=== PATIENT | male | born 1950 | race Caucasian/White ===

== ENCOUNTER → 2020-12-27 | Outpatient (CLI) | payer MEDICARE, BC ==
[~2020-12-27] MED LIST: NO HOME MEDICATIONS
== END ==
LOC: COL.RAD 11:12
DX: M47.816 Spondylosis without myelopathy or radiculopathy, lumbar region (principal); M47.817 Spondylosis without myelopathy or radiculopathy, lumbosacral region; M48.061 Spinal stenosis, lumbar region without neurogenic claudication

== ENCOUNTER → 2021-01-23 | Outpatient (CLI) | payer BC, MEDICARE | LOC: MHCPAIN 14:51 | DX: M47.817 Spondylosis without myelopathy or radiculopathy, lumbosacral region (principal); M54.50 Low back pain, unspecified; M53.3 Sacrococcygeal disorders, not elsewhere classified | CPT/HCPCS: G0463 ==

== ENCOUNTER → 2021-02-02 | Outpatient (CLI) | payer BC, MEDICARE | LOC: MHCPAIN 07:37 | DX: M47.817 Spondylosis without myelopathy or radiculopathy, lumbosacral region (principal); M54.50 Low back pain, unspecified; M53.3 Sacrococcygeal disorders, not elsewhere classified | CPT/HCPCS: J0461 ==

== ENCOUNTER → 2021-02-14 | Outpatient (CLI) | payer MEDICARE, BC | LOC: MHCPAIN 11:16 | DX: M47.817 Spondylosis without myelopathy or radiculopathy, lumbosacral region (principal); M54.50 Low back pain, unspecified; M53.3 Sacrococcygeal disorders, not elsewhere classified | CPT/HCPCS: G0463 ==

== ENCOUNTER → 2021-03-29 | Outpatient (CLI) | payer MEDICARE, BC | LOC: MHCPAIN 10:52 | DX: M47.817 Spondylosis without myelopathy or radiculopathy, lumbosacral region (principal); M54.50 Low back pain, unspecified; M53.3 Sacrococcygeal disorders, not elsewhere classified; E66.01 Morbid (severe) obesity due to excess calories; Z68.43 Body mass index [BMI] 50.0-59.9, adult | CPT/HCPCS: G0463 ==

== ENCOUNTER 2021-06-01 04:31 | Inpatient (IN) | payer MEDICARE, BC ==
[~2021-06-01] VITALS: Ht 188 cm; Wt 180.7 kg
[2021-06-01 05:04] LABS: BASO # 0.1 K/mm3 (0.0-0.2); BASO % 0.5 % (0.0-2.0); EOS # 0.2 K/mm3 (0.0-0.7); EOS % 2.2 % (0.0-4.0); GRAN # 9.3 K/mm3 (1.4-6.5); GRAN % 83.3 % (42.2-75.2); HEMATOCRIT 43.1 % (42.0-52.0); HEMOGLOBIN 14.7 g/dl (13.5-18.0); LYMPH # 0.8 K/mm3 (1.2-3.4); LYMPH % 7.4 % (20.0-51.0); MEAN CELL VOLUME 88 fl (80.0-100.0); MEAN CORPUSCULAR HEMOGLOBIN 30 pg (27-31); MEAN CORPUSCULAR HGB CONC 34 g/dl (33.0-37.0); MONO # 0.7 K/mm3 (0.1-0.6); MONO % 6.1 % (1.7-9.3); PLATELET COUNT 238 K/mm3 (130-400); RED BLOOD COUNT 4.92 M/mm3 (4.20-5.60); REDCELL DISTRIBUTION WIDTH-CV 14.7 % (11.5-14.5)
[2021-06-01 05:22] LABS: ALANINE AMINOTRANSFERASE 13 U/L (0-55); ALBUMIN 2.6 gm/dL (3.4-4.8); ALKALINE PHOSPHATASE 111 U/L (40-150); ANION GAP 14 mmol/L (7-16); AST,SGOT 11 U/L (5-34); BILIRUBIN,TOTAL 0.9 mg/dL (0.2-1.2); BLOOD UREA NITROGEN 17 mg/dL (8-26); CALCIUM 9.5 mg/dL (8.4-10.2); CARBON DIOXIDE 25 mmol/L (23-31); CHLORIDE 98 mmol/L (98-107); CREATININE, serum 1.26 mg/dL (0.72-1.25); GLUCOSE 196 mg/dL (70-99); POTASSIUM 4.3 mmol/L (3.5-4.5); SODIUM 137 mmol/L (136-145); TOTAL PROTEIN 6.8 gm/dL (6.2-8.1)
[2021-06-01 05:38] LABS: TROPONIN-I < 0.010 ng/mL (0.00-0.033)
[2021-06-01 09:53] VITALS: BP 141/90; PULSE 113; TEMP 99.3
[2021-06-01 09:58] LABS: ARTERIAL BLD GAS O2 SATURATION 95.3 % (92-100); ARTERIAL BLD GAS TCO2 CT 23.7; ARTERIAL BLOOD GAS BASE EXCESS -0.6 (-2-2); ARTERIAL BLOOD GAS HCO3 22.7 meq/L (22-26); ARTERIAL BLOOD GAS PCO2 33.8 mmHg (35-45); ARTERIAL BLOOD GAS pH 7.45 (7.35-7.45)
[2021-06-01 13:06] VITALS: BP 117/50; PULSE 114; TEMP 99.1
--- NOTE | 2021-06-01 13:20 | NUR ---
Patient arrived to the floor from ED. Patient is confused and moves around a lot, constantly scooting down in bed. A bariatric bed was ordered for the patient, currenrtly awaiting its arrival. Patient consistently requesting a new bed, and multiple staff members have explained that one has been ordered. Sister called and was given an update, plans to stop by and bring his medication list as well as his medical power of criminal attorney paperwork.
--- NOTE | 2021-06-01 15:29 | NUR ---
Patient is currently confused and verbally yelling out. SW met with the patient's sister Sasha outside of the patient's room. Sasha reports that she and the patient live together and that up until 2 weeks ago the patient was "normal". Sasha states that for the past two weeks she has had to help the patient will all of his ADL's and that he utilizes a walker to assist with ambulation. Patient has no oxygen needs at home. PCP is Dr. Morales and he utilizes [facility] for medications. Sasha provides patient's RN with a copy of his DPOA-HC paperwork. Copy placed in the patient's chart. Sasha appears teary stating that she "can't do it anymore. He has to go to a rehab". Sasha states that she is working two jobs and cannot physically, mentally or emotionally care for the patient any longer. Discussed the different SNF facilities ([facility], [facility], [place], [facility] and [facility]) that would be able to provide the patient with rehab services. Sasha verbalizes that she doesn't care where he goes "as long as it is clean". Informed Sasha that we can send off referrals to all 4 facilities and see who would have a bed available. Sasha verbalizes her agreement with this plan. States that she would like the patient to come back home only after he goes to rehab for therapy and is able to "care for himself and be normal". States that if he cannot do that he will either have to go to a facility or she will have to "move out of the house". Discharge plan: SNF
[2021-06-01 15:35] LABS: COLLECTION METHOD CLEAN CATCH
[2021-06-01] MEDS ORDERED: NEURONTIN300 MG/CAP PO (15:42)
[2021-06-01] MEDS ORDERED: PRIL40 PO (15:43)
[2021-06-01] MEDS ORDERED: GLUCOPHAGE500 MG/TAB PO (15:43)
[2021-06-01] MEDS ORDERED: LIPITOR 40MG TA40 MG PO (15:45)
[2021-06-01] MEDS ORDERED: HYDRODIURIL50 MG PO (15:45)
[2021-06-01] MEDS ORDERED: ZOLOFT 100MG100 MG PO (15:46)
[2021-06-01 15:47] LABS: MUCOUS Present (NOT PRESENT); PH 5 (5-8); URINE APPEARANCE Hazy (CLEAR/HAZY); URINE BACTERIA Rare /hpf (NONE SEEN); URINE BILIRUBIN Negative (NEGATIVE); URINE BLOOD Negative (NEGATIVE); URINE COLOR Yellow (YELLOW); URINE GLUCOSE Negative (NEGATIVE); URINE KETONE Negative (NEGATIVE); URINE LEUKOCYTE ESTERASE 2+ (NEGATIVE); URINE NITRATE Negative (NEGATIVE); URINE PROTEIN(semi-quant) Negative (NEGATIVE); URINE UROBILINOGEN Negative (NEGATIVE)
[2021-06-01] MEDS ORDERED: NAPROSYN500 MG PO (15:47)
[2021-06-01] MEDS ORDERED: KLOR-CON 1010 MEQ PO (15:47)
[2021-06-01] MEDS ORDERED: ULTRAM 50MG TAB50 MG PO (15:50)
[2021-06-01] MEDS ORDERED: SYNTHROID0.05 MG/TA PO (15:50)
[2021-06-01] MEDS ORDERED: AMARYL 2MG T2 MG/TAB PO (15:52)
[2021-06-01 16:21] VITALS: BP 106/65; PULSE 113; TEMP 99.2
--- NOTE | 2021-06-01 17:49 | NUR ---
Patient has calmed down a bit, but still remains disgruntled. Patient's sister brought all of the home medications in and med rec was completed. Patient told sister to, "Get the f*ck out of my room. You put me in here becasue you only care about yourself". RN and sister left the room. Sister became teary-eyed and expressed that he has been this way for the last 2wks, and that she can no longer handle it. Patient is morbidly obese and needs a bariatric bed. This has been ordered and should be here tomorrow according to the [facility] providers. Patient is very unhappy with his current situation here in the hospital and is stating that he will be leaving tomorrow.
[2021-06-01 21:05] VITALS: BP 143/50; PULSE 99; TEMP 98.9
--- NOTE | 2021-06-01 22:00 | NUR ---
Patient is reting in bed, alert and oriented x 3, Tachycardic. Telemetry in place. Left hand IV leaking, removed. Getting 2L O2 NC. Assisted to use the bed comode and urinal. Assessment completed, medications provided. Asked for meds to sleep and something for itchiness in his skin. Called Ida and added PRN meds. No other needs at this time. Call light within reach.
[2021-06-02] VITALS (9 sets, daily range): BP systolic 103–141; BP diastolic 53–89; PULSE 84–117; TEMP 97.6–99
[2021-06-02 06:10] LABS: BASO % 0.4 % (0.0-2.0); EOS # 0.2 K/mm3 (0.0-0.7); EOS % 1.6 % (0.0-4.0); GRAN # 7.4 K/mm3 (1.4-6.5); GRAN % 76.5 % (42.2-75.2); HEMATOCRIT 41.4 % (42.0-52.0); HEMOGLOBIN 14.3 g/dl (13.5-18.0); LYMPH # 1.3 K/mm3 (1.2-3.4); LYMPH % 13.5 % (20.0-51.0); MEAN CELL VOLUME 87 fl (80.0-100.0); MEAN CORPUSCULAR HEMOGLOBIN 30 pg (27-31); MEAN CORPUSCULAR HGB CONC 35 g/dl (33.0-37.0); MEAN PLATELET VOLUME 10.5 fl (7.4-10.4); MONO # 0.7 K/mm3 (0.1-0.6); MONO % 7.3 % (1.7-9.3); PLATELET COUNT 257 K/mm3 (130-400); RED BLOOD COUNT 4.75 M/mm3 (4.20-5.60); REDCELL DISTRIBUTION WIDTH-CV 14.6 % (11.5-14.5)
--- NOTE | 2021-06-02 06:20 | NUR ---
Patient has been disoriented along the night. He asked for his clothes to go home, expecting seeing someone outside waiting for him. He has been Tachycardic 110's, Report will be given to day shift RN.
[2021-06-02 06:26] LABS: ALBUMIN 2.6 gm/dL (3.4-4.8); C-REACTIVE PROTEIN 19.9 mg/dL (0.00-0.50); CALCIUM 9.3 mg/dL (8.4-10.2); CREATININE, serum 1.28 mg/dL (0.72-1.25); MAGNESIUM 1.5 mg/dL (1.6-2.6); PHOSPHOROUS 4.6 mg/dL (2.3-4.7); POTASSIUM 3.2 mmol/L (3.5-4.5)
--- NOTE | 2021-06-02 07:15 | NUR ---
DOING ROUNDING ON PTS, PT ATTEMPTING TO GET OUT OF BED, POOR MOBILITY, PT APPEARED DISORIENTED, PULLING OFF OXYGEN AND TELE, WAS ABLE TO CONVINCE PT TO GET BACK TO BED, PT ANSWERED ORIENTATION QUESTIONS APPROPRIATELY AND THEN STATED "IM NOT CRAZY, I JUST HAVE A SISTER WHO HATES ME, LIKE YOU GUYS PROBABLY DO". EDUCATED PT TO CALL WHEN NEEDING TO AMBULATE DUE TO RECENT FALLS AT HOME, PT STATED "YEAH I JUST DONT WANT TO BUG YOU GUYS MORE THAN I ALREADY DO". BED ALARM SET, OXYGEN PUT BACK ON PT, TELE PLACED BACK ON PT, NO OTHER NEEDS AT THIS TIME.
[2021-06-02 08:41] LABS: ERYTHROCYTE SEDIMENTATION RATE 82 mm/hr (0-30)
--- NOTE | 2021-06-02 10:00 | NUR ---
PT GETTING AGITATED, YELLING HE WOULD NOT GO TO A FACILITY, PT AOX4 BUT CONVERSATION DOES NOT MAKE SENSE, POOR MEMORY AND RECALL, FAMILY FRIEND AT BEDSIDE EDUCATING PT ON NEED FOR SNF FACILITY. PT SISTER, DPOA CALLED AND STATED "I CAN'T KEEP CARING FOR HIM, THEODORE HAD TO CALL EMS 10 TIMES IN THE MIDDLE OF THE NIGHT TO GET HIM OFF THE FLOOR... IF HE COMES HOME I'M LEAVING... HE'S DRAINING MY SOUL..." PASSED ALONG TO PHYSICIAN, NO NEW ORDERS. VISUAL C DEVELOPER NOTIFIED AND WORKING ON CASE.
--- NOTE | 2021-06-02 13:09 | NUR ---
First visit from the junior account manager. No needs right now.
--- NOTE | 2021-06-02 15:51 | NUR ---
Lodging House Keeper followed up with patient about discharge plan. Patient verbalized frustration and stated he cannot stay in this hosptial any longer and will call a cab if he needs to. ARACELIS discussed rehab with patient and he stated that's fine but he's leaving the hospital today. Patient's niece, Billie (ph#[phone]) arrives at bedside and states she will talk with patient. ARACELIS followed up later that morning with both patient and Billie. Billie states patient's sister, Sasha who he lives with does not want him to come home and believes he needs rehab. Patient states his sister is a "bitch". Billie says the plan will be rehab and patient verbalized that he is agreeable, but not happy about it. Billie advised she works at [facility] [employer] and patient would like additional referral sent there. ARACELIS faxed referrals to [facility], [facility], [place], [facility], and [facility]. [facility] declined referral. [facility] advised they want more updates before they will accept/decline. Discharge Plan: SNF
--- NOTE | 2021-06-02 16:32 | NUR ---
COURTNEY RN ANSWERED CALL FROM NURSES STATION FROM [facility] STATING PT WAS CALLING SAYING WE WERE KEEPING HIM AGAINST HIS WILL. ENTERED PT ROOM TO TALK TO HIM HE STATED "I TOLD YOU MULTIPLE TIMES I WAS GOING TO CALL THE POLICE... IM GOING HOME, YOU WONT GIVE ME ANY PHONE NUMBERS". PT HAS NOT MADE ANY REQUESTS TO CALL OTHERS DURING THIS SHIFT, HAS NOT THREATENED TO CALL THE POLICE, PT AGREABLE TO SNF FACILITY WITH FAMILY MEMBER IN ROOM. DR. JEONG NOTIFIED TO DE ESCALATE PT, IN ROOM WITH PT. PT WANTING TO PRIVATE PAY EMS HOME, JUDY BALBUENA ARRIVED DURING THIS CONVERSATION WITH PT.
--- NOTE | 2021-06-02 17:21 | NUR ---
PT BECOMING VIOLENT AND GRABBING AT STAFF AND SISTER/DPOA IN THE ROOM. HALDOL GIVEN PER ORDER ALONG WITH SEROQUEL. ASSISTED PT BACK TO BED. PT STILL INSISTING ON LEAVING FACILITY, DR. JEONG STATED HE IS NOT ABLE TO MAKE HIS OWN DECISIONS AT THIS TIME, DPOA IN ROOM ATTEMPTING TO CALM PT
[2021-06-02 18:16] LABS: ARTERIAL BLD GAS O2 SATURATION 92.8 % (92-100); ARTERIAL BLD GAS TCO2 CT 22.7; ARTERIAL BLOOD GAS BASE EXCESS 0.8 (-2-2); ARTERIAL BLOOD GAS HCO3 21.9 meq/L (22-26); ARTERIAL BLOOD GAS PCO2 26.7 mmHg (35-45); ARTERIAL BLOOD GAS PO2 66.9 mmHg (80-100); ARTERIAL BLOOD GAS pH 7.53 (7.35-7.45)
--- NOTE | 2021-06-02 18:16 | NUR ---
PT CONTINUING WITH AGGRESSIVE BEHAVIOR, ATIVAN ORDERED IV, ATTEMTPED TO GIVE IV ATIVAN, PT HAD RIPPED OUT IV, DR. JEONG NOIFIED AND VERBAL ORDER PLACED FOR IM ATIVAN AND CONTINUOUS PULSE OX. PULSE OX PLACED AND IM ATIVAN GIVEN PER ORDER.
--- NOTE | 2021-06-02 19:00 | NUR ---
EMILY PT SISTER STATING "HE'S HALLUCINATING THINGS ON THE CEILING SAYING EMILY HELP ME, EMILY HELP ME AND HE DOES THIS ALL NIGHT AT HOME WITH ME. I DON'T KNOW HOW HE GOT SO BAD, DOES HE NEED A PSYCH FACILITY INSTEAD OF A SNF? ", EMILY STATING SHE CANNOT CARE FOR HIM AT HOME, PT STILL TRYING TO GET OUT OF BED DESPITE MANY MEDS GIVEN, SISTER EMILY LEAVING AT THIS TIME. BED ALARM IN PLACE, PT SETTING OFF BED ALARM TRYING TO GET UP.
[2021-06-03] VITALS (7 sets, daily range): BP systolic 95–150; BP diastolic 61–90; PULSE 102–110; TEMP 97.9–98.8
[2021-06-03 02:28] LABS: IMMUNOGLOBULIN A 247 mg/dL (101-645); IMMUNOGLOBULIN G 731 mg/dL (540-1822)
--- NOTE | 2021-06-03 02:29 | NUR ---
PATIENT DOING WELL TONIGHT. ALERT BUT NOT ORIENTED. SPEECH IS VERY CONFUSED. AT START OF SHIFT PATIENT CONTINUOUSLY TRIED TO GO HOME AND KEPT ROLLING IN BED SETTING OFF THE ALARM. HS MEDICATIONS WERE GIVEN. NO PRN MEDS. AND PATIENT HAS BEEN RESTING IN BED SINCE WITHOUT ISSUE. AMBULATED WITH X1 ASSIST TO BEDSIDE COMMODE. TELE SHOWING A FLUTTER. BLOOD SUGAR 141 AT MIDNIGHT. NO FURTHER NEEDS. DENIES PAIN.
[2021-06-03 05:57] LABS: BASO % 0.4 % (0.0-2.0); EOS # 0.2 K/mm3 (0.0-0.7); EOS % 1.9 % (0.0-4.0); GRAN # 6.9 K/mm3 (1.4-6.5); HEMATOCRIT 43.8 % (42.0-52.0); HEMOGLOBIN 14.4 g/dl (13.5-18.0); LYMPH # 1.1 K/mm3 (1.2-3.4); LYMPH % 12.3 % (20.0-51.0); MEAN CELL VOLUME 91 fl (80.0-100.0); MEAN CORPUSCULAR HEMOGLOBIN 30 pg (27-31); MEAN CORPUSCULAR HGB CONC 33 g/dl (33.0-37.0); MEAN PLATELET VOLUME 10.3 fl (7.4-10.4); MONO # 0.8 K/mm3 (0.1-0.6); MONO % 8.4 % (1.7-9.3); PLATELET COUNT 248 K/mm3 (130-400); RED BLOOD COUNT 4.84 M/mm3 (4.20-5.60); REDCELL DISTRIBUTION WIDTH-CV 14.6 % (11.5-14.5)
[2021-06-03 06:15] LABS: ALBUMIN 2.6 gm/dL (3.4-4.8); CALCIUM 9.1 mg/dL (8.4-10.2); CREATININE, serum 1.26 mg/dL (0.72-1.25); MAGNESIUM 1.9 mg/dL (1.6-2.6); PHOSPHOROUS 4.1 mg/dL (2.3-4.7); POTASSIUM 3.7 mmol/L (3.5-4.5)
--- NOTE | 2021-06-03 09:50 | NUR ---
Shift assessment complete. Pt lying in bed, alert, oriented to self only. At this time, pt sleeping, breathing noisy and labored. Wearing 2 L O2 w/sats low 90s. Pt has been restless this morning attempting to get out of bed and calling out frequently though cooperative and easily redirected. Haldol given per orders and pt resting at this time. Vitals stable. Denies pain or other concerns. Pt's sister updated via phone. Bed alarm on and continuing to monitor.
[2021-06-03 13:33] LABS: ANA SCREEN with REFLEX Negative (Negative)
--- NOTE | 2021-06-03 15:35 | NUR ---
Patient nurse contacted this Sanitarian Inspector requesting follow up to patient who has reported depression and requested to speak to a "professional," as will not speak to the aid or the nurse. This health social work professor and Neelima Sanitarian Inspector, attempted to meet with patient; he appeared to be sleeping and was snoring. He did not rouse to multiple prompts to speak, calling him by his name. Patient nurse updated.
--- NOTE | 2021-06-03 16:15 | NUR ---
parks and recreation worker sent clinical updates to the following facilities: [facility], [facility], [facility], [facility], and [facility].
--- NOTE | 2021-06-03 17:56 | NUR ---
Pt asleep most of shift. Intermittent bouts of restlessness and trying to get up but easily redirected. Had one episode of reporting increased depression and requested to speak to a "professional" refusing to speak to this RN or MEDICAL SERVICE REPRESENTATIVE. Social work contacted and attempted to speak w/pt but he was asleep and did not rouse. Resting in bed w/eyes closed now.
--- NOTE | 2021-06-03 22:00 | NUR ---
Patient is resting in bed, seems uncomfortable, NC not in place, adapted. 2.5L O2 NC. Alert but partially oriented, Telemetry in place, Afib HR 100's. Assessment completed, medications provided. No other needs at this time. Call light within reach.
[2021-06-04] VITALS (457 sets, daily range): BP systolic 133–171; BP diastolic 68–97; PULSE 97–115; TEMP 97.7–98.3; O2SAT 50–100
--- NOTE | 2021-06-04 05:27 | NUR ---
Patient has been awake most of the night. He was constantly asking for assisstance to urinate. He was able to void at aprox 0430, antianxiety meds provided. Right now sleeping. Continue HR 100-110. Report will be given to day RN.
[2021-06-04 06:57] LABS: BASO % 0.4 % (0.0-2.0); EOS # 0.2 K/mm3 (0.0-0.7); EOS % 2.1 % (0.0-4.0); GRAN # 6.6 K/mm3 (1.4-6.5); HEMATOCRIT 42.8 % (42.0-52.0); HEMOGLOBIN 14.3 g/dl (13.5-18.0); LYMPH # 1.6 K/mm3 (1.2-3.4); LYMPH % 17.5 % (20.0-51.0); MEAN CELL VOLUME 90 fl (80.0-100.0); MEAN CORPUSCULAR HEMOGLOBIN 30 pg (27-31); MEAN CORPUSCULAR HGB CONC 33 g/dl (33.0-37.0); MEAN PLATELET VOLUME 10.7 fl (7.4-10.4); MONO # 0.7 K/mm3 (0.1-0.6); MONO % 7.9 % (1.7-9.3); PLATELET COUNT 272 K/mm3 (130-400); RED BLOOD COUNT 4.78 M/mm3 (4.20-5.60); REDCELL DISTRIBUTION WIDTH-CV 14.4 % (11.5-14.5)
--- NOTE | 2021-06-04 08:02 | NUR ---
DR. JEONG HAD REQUESTED TO ATTEMPT CPAP FOR PT BUT WHEN 1999 NEB TREATMENT WAS ATTEMPTED, PT BECAME CONFUSED AND AGITATED AND REFUSED BOTH TREATMENT AND NEBULIZER. PT IS CURRENTLY SLEEPING ON 2L AND SP02 IS 95%. PT WILL NOT TOLERATE THE V60.
[2021-06-04 08:08] LABS: ALBUMIN 2.9 gm/dL (3.4-4.8); CALCIUM 9.2 mg/dL (8.4-10.2); CREATININE, serum 1.22 mg/dL (0.72-1.25); PHOSPHOROUS 4.4 mg/dL (2.3-4.7); POTASSIUM 3.9 mmol/L (3.5-4.5)
--- NOTE | 2021-06-04 12:45 | NUR ---
MD Bridger at bedside - pt continues to be altered - however pt is more drowsy. Romazicon administered per MD Bridger - pt neurological status not improved after antidote administration BiPAP applied 40% pt tolerating well - plan to transfe pt to ICU for closer monitoring. 1340 pt arrived to ICU - neurological status unchanged - vitals stable - recieved by KRIS Frankel
--- NOTE | 2021-06-04 13:34 | NUR ---
RECEIVED BEDSIDE SHIFT REPORT FROM KRIS DENTON. PATIENT RECEIVED FROM MEDICAL FLOOR ON BIPAP. PATIENT IS OBTUNDED BUT ANSWERS TO HIS NAME. VSS. SOME SKIN ISSUES. SET UP IN ROOM AND PLACED ON A SIDE.
--- NOTE | 2021-06-04 14:38 | NUR ---
Phuc with [facility] states that they are unable to accept this patient due to not having a bariatric bed open at this time.
--- NOTE | 2021-06-04 16:45 | NUR ---
DR. JEONG AT BEDSIDE.CONCERNED FOR MENTAL STATUS. EXPLAINED THAT PATIENT WAS AWAKE AND STILL TRYING TO CLIMB OUT OF BED. INDWELLING URINARY CATHETER WAS PLACED.
[2021-06-04 16:58] LABS: ARTERIAL BLD GAS O2 SATURATION 96.2 % (92-100); ARTERIAL BLOOD GAS BASE EXCESS 1.3 (-2-2); ARTERIAL BLOOD GAS HCO3 26.6 meq/L (22-26); ARTERIAL BLOOD GAS PCO2 44.7 mmHg (35-45); ARTERIAL BLOOD GAS pH 7.39 (7.35-7.45)
[2021-06-04 17:12] LABS: CALCIUM 9.5 mg/dL (8.4-10.2); CREATININE, serum 1.37 mg/dL (0.72-1.25); POTASSIUM 4.1 mmol/L (3.5-4.5)
--- NOTE | 2021-06-04 19:25 | NUR ---
Pt found wearing BIPAP, total face mask, tx given inline and tolerated well. RN at bedside.
--- NOTE | 2021-06-04 20:38 | NUR ---
CALL TO JUAN MCARTHUR AND DR. KANG WITH [facility] ABOUT PT'S INCREASED RESTLESSNESS AND CONFUSION. WILL START PRECEDEX DRIP.
--- NOTE | 2021-06-04 21:30 | NUR ---
ACKNOWLEDGED HEAD CT ORDER PLACED THIS EVENING, HOWEVER WITH PT'S AGITATION AND RESTLESSNESS WILL NOT BE ABLE TO TAKE TO CT AT THIS TIME. JUAN QUIROZ AGREES NOT TO TRY. WILL CONTINUE TO MONITOR.
--- NOTE | 2021-06-04 22:03 | NUR ---
THIS RN WITH SECOND RN SPOKE WITH PT'S SISTER AND DPOA ABOUT CURRENT CONDITION AND POC. CLARIFIED PT'S WISHES SHOULD PT DECLINE TO NEEDING RESCUSITATION. SISTER STATES SHE HAS TALKED WITH PT AT LENGTH ABOUT WISHES AND PT HAS STATED WOULD NOT WANT TO BE ON VENTILATOR OR RESCUSITATED. CALL TO JUAN QUIROZ TO DISCUSS AND UPDATE CODE STATUS FOR EMR.
[2021-06-05] VITALS (816 sets, daily range): BP systolic 96–147; BP diastolic 64–88; PULSE 66–118; TEMP 97.6–98.4; O2SAT 30–100
--- NOTE | 2021-06-05 00:30 | NUR ---
PT SETTLED DOWN ENOUGH TO SLEEP, VSS. TITRATING PRECEDEX DRIP DOWN TOLERATED. REMAINS ON BIPAP.
--- NOTE | 2021-06-05 02:40 | NUR ---
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 WILL FOLLOW.
--- NOTE | 2021-06-05 03:07 | NUR ---
PRECEDEX PLACED ON STANDBY PER JUAN QUIROZ DUE TO RHYTHM CHANGE ON EKG. ALSO DISCUSSED LOW UOP, INCREASED NS TO 100ML/HR. WILL CONTINUE TO MONITOR.
[2021-06-05 04:01] LABS: ARTERIAL BLD GAS TCO2 CT 29.2; ARTERIAL BLOOD GAS BASE EXCESS 1.6 (-2-2); ARTERIAL BLOOD GAS HCO3 27.7 meq/L (22-26); ARTERIAL BLOOD GAS PCO2 49.3 mmHg (35-45); ARTERIAL BLOOD GAS PO2 89.9 mmHg (80-100); ARTERIAL BLOOD GAS pH 7.37 (7.35-7.45)
[2021-06-05 05:25] LABS: BASO % 0.4 % (0.0-2.0); EOS # 0.1 K/mm3 (0.0-0.7); EOS % 1.1 % (0.0-4.0); GRAN # 7.4 K/mm3 (1.4-6.5); GRAN % 73.5 % (42.2-75.2); HEMATOCRIT 42.4 % (42.0-52.0); HEMOGLOBIN 13.7 g/dl (13.5-18.0); LYMPH # 1.6 K/mm3 (1.2-3.4); LYMPH % 15.9 % (20.0-51.0); MEAN CELL VOLUME 93 fl (80.0-100.0); MEAN CORPUSCULAR HEMOGLOBIN 30 pg (27-31); MEAN CORPUSCULAR HGB CONC 32 g/dl (33.0-37.0); MONO # 0.8 K/mm3 (0.1-0.6); MONO % 8.1 % (1.7-9.3); PLATELET COUNT 271 K/mm3 (130-400); RED BLOOD COUNT 4.57 M/mm3 (4.20-5.60); REDCELL DISTRIBUTION WIDTH-CV 14.4 % (11.5-14.5)
[2021-06-05 05:43] LABS: ALBUMIN 2.9 gm/dL (3.4-4.8); CALCIUM 9.4 mg/dL (8.4-10.2); CREATININE, serum 1.55 mg/dL (0.72-1.25); MAGNESIUM 2.2 mg/dL (1.6-2.6); PHOSPHOROUS 4.9 mg/dL (2.3-4.7)
--- NOTE | 2021-06-05 06:28 | NUR ---
PRECEDEX DRIP HAS BEEN OFF SINCE 304, PT HAS REMAINED SLEEPING IN BED. VSS. HAS BEEN SR WITH INFREQUENT DROPPED QRS COMPLEXES FOR LAST 2HRS, NO LONGER CONSISTENT 2 DEGREE AVB TYPE 2.
--- NOTE | 2021-06-05 08:21 | NUR ---
[facility] cannot accept due to patient's size.
--- NOTE | 2021-06-05 10:00 | NUR ---
PATIENT RESTING IN BED AT THIS TIME, FREQUENTLY REPOSITIONS SELF, ASSIST X3 WITH BOOSTING AND TURNING. PATIENT FREQUENTLY ASKS FOR DRINKS OF WATER AND TOILETING. PATIENT PLACED ON BEDPAN X 3 WITH NO BM RESULTS. THIS RN REMINDS PATIENT MULTIPLE TIMES THAT URINARY CATHTER IS IN PLACE. THIS RN EDUCATES PATIENT REGARDING NEED FOR SPEECH THERAPY CONSULT PRIOR TO DRINKING FLUIDS. ORAL CARE PROVIDED MULTIPLE TIMES. PATIENT ABLE TO ANSWER QUESTIONS APPROPRIATELY.
--- NOTE | 2021-06-05 10:15 | NUR ---
Pricila with [facility] contacted and advised they cannot accept referral.
--- NOTE | 2021-06-05 15:58 | NUR ---
DR. JOVEL AT BEDSIDE, NEW ORDER RECEIVED TO RE-START METOPROLOL.
--- NOTE | 2021-06-05 16:00 | NUR ---
PATIENT PULLING AT TUBES AND LINES AT THIS TIME, DR. ELLIS AT BEDSIDE. PATIENT STATES "GET ME OUT OF THIS DAMN ROOM. I DON'T WANT TO BE HERE WITH ALL OF THOSE PEOPLE." PATIENT POINTS TO CORNER OF ROOM AND STATES "DON'T YOU SEE ALL OF THOSE PEOPLE?" NO OTHER PEOPLE WERE IN THE ROOM WITH THIS RN AND PATIENT. DR. ELLIS NOTIFIED, NEW ORDERS FOR ZYPREXA RECEIVED.
--- NOTE | 2021-06-05 18:00 | NUR ---
PATIENT SISTER, EDIE, AT BEDSIDE, PROVIDES PATIENT'S ADVANCED DIRECTIVE PAPERWORK.
--- NOTE | 2021-06-05 19:00 | NUR ---
SPUTUM CULTURE NOT COLLECTED DUE TO NO SPUTUM PRESENT.
--- NOTE | 2021-06-05 19:31 | NUR ---
Received report from KRIS Petty. Patient A&Ox2, resting in bed on 3L NC. HR elevated in the 110s and showing ST on telemetry. Patient appears restless and shouting while laying in bed. Harden catheter DC'd earlier during dayshift, no urine output noted since catheter pulled. Patient continues on doxycycline and rocpehin for abx d/t pneumonia diagnosis. Will resume care of patient at this time.
--- NOTE | 2021-06-05 19:51 | NUR ---
Pt found wearing 3L NC and tolerating well. Tx given via mask. Pt not ready to put on BiPAP at this time.
[2021-06-06] VITALS (747 sets, daily range): BP systolic 73–131; BP diastolic 32–83; PULSE 49–109; TEMP 97.6–98.3; O2SAT 50–100
--- NOTE | 2021-06-06 01:26 | NUR ---
Tx given via mask, tolerated well.
[2021-06-06 04:13] LABS: BASO # 0.1 K/mm3 (0.0-0.2); BASO % 0.6 % (0.0-2.0); EOS # 0.2 K/mm3 (0.0-0.7); EOS % 1.7 % (0.0-4.0); GRAN # 6.7 K/mm3 (1.4-6.5); HEMATOCRIT 40.3 % (42.0-52.0); HEMOGLOBIN 13.2 g/dl (13.5-18.0); LYMPH # 1.6 K/mm3 (1.2-3.4); LYMPH % 17.3 % (20.0-51.0); MEAN CELL VOLUME 91 fl (80.0-100.0); MEAN CORPUSCULAR HEMOGLOBIN 30 pg (27-31); MEAN CORPUSCULAR HGB CONC 33 g/dl (33.0-37.0); MONO # 0.8 K/mm3 (0.1-0.6); MONO % 8.9 % (1.7-9.3); PLATELET COUNT 255 K/mm3 (130-400); RED BLOOD COUNT 4.44 M/mm3 (4.20-5.60); REDCELL DISTRIBUTION WIDTH-CV 14.6 % (11.5-14.5)
[2021-06-06 04:31] LABS: ALBUMIN 2.9 gm/dL (3.4-4.8); BILIRUBIN,TOTAL 0.6 mg/dL (0.2-1.2); CREATININE, serum 1.25 mg/dL (0.72-1.25); PHOSPHOROUS 3.2 mg/dL (2.3-4.7); POTASSIUM 3.6 mmol/L (3.5-4.5); TOTAL PROTEIN 6.1 gm/dL (6.2-8.1)
--- NOTE | 2021-06-06 04:32 | NUR ---
Patient becoming agitated and yelling/cussing at staff. Attempting to pull at monitor lines and IVs and attempting to get out of bed and stating he wanted to sleep on the floor because its more comfortable. Unable to redirect. Received order for precedex gtt to be restarted. Started gtt at 0.5mcg/kg/hr per PA.
--- NOTE | 2021-06-06 07:00 | NUR ---
PT RESTING IN BED. VSS. PT ON PRECEDEX DRIP. WILL CONTINUE TO MONITOR.
--- NOTE | 2021-06-06 11:38 | NUR ---
NOTIFIED OF PT INTERMITTENTLY BRADYCARDIC TO 47. STATES WILL CHANGE METOPROLOL DOSING.
--- NOTE | 2021-06-06 14:18 | NUR ---
Primary care nurse requested do not wake patient up for PICC daily assessment.
--- NOTE | 2021-06-06 14:34 | NUR ---
1415 PT BECAME HYPOTNENSIVE 73/32. PT AROUSES TO VOICE. PRECEDEX DECREASED. PT ABLE TO ANSWER QUESTIONS AND DRINK WATER. BP BACK UP TO 106/51. WILL ALEENANUE TO JU.
--- NOTE | 2021-06-06 21:30 | NUR ---
PT AWAKE, PLEASANT AND COOPERATIVE. FOLLOWING COMMANDS AND APPROPRIATE CONVERSATION. REORIENTED TO TIME, UNDERSTANDS SITUATION AND PLACE. DOES WANT TO GO HOME BUT UNDERSTANDS HE IS TOO WEAK AT THIS TIME. INFORMED PT OF POC AND FAMILY MEETING TOMORROW WITH DR. ELLIS AND SISTER. HELPED PT WITH DRINK AND BEDTIME SNACK AND USING THE URINAL. PRECEDEX DECREASED TO ZERO AT THIS TIME, WILL CONTINUE TO MONITOR.
--- NOTE | 2021-06-06 23:05 | NUR ---
SPUTUM CULTURE REMAINS UNCOLLECTED PT DOES NOT HAVE COUGH.
[2021-06-07] VITALS (451 sets, daily range): BP systolic 95–133; BP diastolic 57–86; PULSE 73–104; TEMP 97.9–99; O2SAT 55–100
[2021-06-07 05:30] LABS: BASO # 0.1 K/mm3 (0.0-0.2); BASO % 0.5 % (0.0-2.0); EOS # 0.2 K/mm3 (0.0-0.7); EOS % 1.8 % (0.0-4.0); GRAN # 7.4 K/mm3 (1.4-6.5); GRAN % 75.6 % (42.2-75.2); HEMATOCRIT 39.3 % (42.0-52.0); HEMOGLOBIN 12.3 g/dl (13.5-18.0); LYMPH # 1.3 K/mm3 (1.2-3.4); LYMPH % 13.4 % (20.0-51.0); MEAN CELL VOLUME 94 fl (80.0-100.0); MEAN CORPUSCULAR HEMOGLOBIN 30 pg (27-31); MEAN CORPUSCULAR HGB CONC 31 g/dl (33.0-37.0); MEAN PLATELET VOLUME 10.2 fl (7.4-10.4); MONO # 0.8 K/mm3 (0.1-0.6); PLATELET COUNT 208 K/mm3 (130-400); RED BLOOD COUNT 4.17 M/mm3 (4.20-5.60); REDCELL DISTRIBUTION WIDTH-CV 14.6 % (11.5-14.5)
[2021-06-07 05:49] LABS: CALCIUM 8.4 mg/dL (8.4-10.2); CREATININE, serum 0.93 mg/dL (0.72-1.25); POTASSIUM 4.2 mmol/L (3.5-4.5)
--- NOTE | 2021-06-07 06:47 | NUR ---
CALL TO DR. COLLADO FOR NEURO CONSULT. PHONE STRAIGHT TO VOICEMAIL, MESSAGE LEFT. WILL PASS INFORMATION ALONG TO ONCOMING RN.
--- NOTE | 2021-06-07 08:30 | NUR ---
Patient is unable to lay on his back for right upper arm measurement.
--- NOTE | 2021-06-07 09:05 | NUR ---
Call made to patient's sister, Sasha. Education provided regarding patient's condition. Sasha is adamant that she cannot take the patient back home unless he is mobile and "coherent". She is fine with a rehab stay after his hospitalization. She has a meeting scheduled this afternoon at 2pm with the hospitalist and also has questions for social work. We discussed me joining the meeting this afternoon and also asking social work to join and she was very happy with that. Neelima SW aware and planning to attend.
[2021-06-07 09:24] LABS: ARTERIAL BLD GAS O2 SATURATION 93.5 % (92-100); ARTERIAL BLD GAS TCO2 CT 26.7; ARTERIAL BLOOD GAS BASE EXCESS 0.9 (-2-2); ARTERIAL BLOOD GAS HCO3 25.4 meq/L (22-26); ARTERIAL BLOOD GAS PCO2 40.3 mmHg (35-45); ARTERIAL BLOOD GAS pH 7.42 (7.35-7.45)
--- NOTE | 2021-06-07 10:44 | NUR ---
SW met with patient and palliative care RN Karina. Discussed plan today with patient and that we were to have a meeting at 1400 with his sister to discuss his plan of care. During interaction with the patient he continue to exhibt intermittent confusion. Patient's biggest worry is how much everything will cost. Had to redirect the patient multiple times that his insurance will take care of his hospital/SNF stay.
--- NOTE | 2021-06-07 10:45 | NUR ---
[facility] ARACELIS Ortez joined me as well. Discussed with patient about going to rehab and that it would mean him living at the facility for a while. Patient's main concern is how much everything costs. ARACELIS explained what Medicare covers. We also tried to encourage the patient to wear his BiPAP at night and he didn't recall ever being told he needed to and again asked what that costs. Clarified that inpatient treatments are covered for the duration of his stay and that it is important for him to wear it, especially when trying to find a SNF/rehab location to accept him. Patient also informed that we are meeting with his sister this afternoon.
[2021-06-07 12:35] LABS: A/G RATIO (PEP) 0.71 (())
--- NOTE | 2021-06-07 13:56 | NUR ---
Referral made to Sasha in [facility]. Clinical updates faxed to Haris at [facility]. Their concerns are the patients weight, how many people it takes to assist along with his behaviors. Informed Haris that PT was able to get him up as a x1 assist today and that he is much more calm and corroborative today. Haris is going to have the team look over his notes and would also like to know the outcome of today's family meeting.
--- NOTE | 2021-06-07 15:51 | NUR ---
SW attended family meeting with patient, his sister Sasha, palliative care Rn Karina and hospitalist. Discussion was held about the patients current situation and the need for post acute rehab before returning home. Patient knew he was in the hospital but was unaware that he was in the ICU. He is agreeable to going receiving post acute rehab but is sad that he cannot go home first to see his dogs. Educated the patient that he has to start wearing his bipap a night and that his compliance with the staff in addition to his weight are all barriers to him being placed. Patient verbalizes his understanding of the above. Patient's sister verbalizes to the patient that he cannot come home prior to getting rehab. Informed the patient of the referrals that we have sent and which facility have denied. Clinical updates faxed to Haris at [facility]. After review, Haris gets back with me informing me that the team has denied the referral due to the patient's weight, behaviors and family dynamics.
--- NOTE | 2021-06-07 20:57 | NUR ---
Patient did well overall today; he was still confused at times but overall was alert and mostly oriented. Patient was willing and able to get out of bed and walk with PT today, as well as sit in the recliner and use the bedside commode with some assistance; after this activity patient went back to bed and remained there, not wanting to get up or be repositioned as he likes to lie on his right side.
[2021-06-08] VITALS (201 sets, daily range): BP systolic 108–134; BP diastolic 57–91; PULSE 79–92; TEMP 97.9–98.7; O2SAT 55–100
[2021-06-08 05:16] LABS: BASO # 0.1 K/mm3 (0.0-0.2); BASO % 0.7 % (0.0-2.0); EOS # 0.1 K/mm3 (0.0-0.7); EOS % 1.8 % (0.0-4.0); GRAN # 4.9 K/mm3 (1.4-6.5); HEMATOCRIT 40.1 % (42.0-52.0); HEMOGLOBIN 12.7 g/dl (13.5-18.0); LYMPH # 1.5 K/mm3 (1.2-3.4); LYMPH % 20.4 % (20.0-51.0); MEAN CELL VOLUME 96 fl (80.0-100.0); MEAN CORPUSCULAR HEMOGLOBIN 30 pg (27-31); MEAN CORPUSCULAR HGB CONC 32 g/dl (33.0-37.0); MEAN PLATELET VOLUME 10.4 fl (7.4-10.4); MONO # 0.6 K/mm3 (0.1-0.6); MONO % 8.4 % (1.7-9.3); PLATELET COUNT 198 K/mm3 (130-400); REDCELL DISTRIBUTION WIDTH-CV 14.7 % (11.5-14.5)
[2021-06-08 05:26] LABS: CALCIUM 8.4 mg/dL (8.4-10.2); CREATININE, serum 0.84 mg/dL (0.72-1.25); POTASSIUM 3.9 mmol/L (3.5-4.5)
--- NOTE | 2021-06-08 07:00 | NUR ---
RECEIVED REPORT FROM KRIS ALBRIGHT. PT SLEEPING IN BED ON 5L VIA NC. VSS. CALL LIGHT WITHIN REACH.
--- NOTE | 2021-06-08 09:28 | NUR ---
Initial visit; Patient thanked Strategic Marketing Manager for looking in on him and offering God's blessings and to keep him in her prayers.
--- NOTE | 2021-06-08 12:06 | NUR ---
REPORT CALLED TO KRIS CELIS ON MEDICAL. PT TO BE TRASNFERRED VIA BED ON 4L VIA [place]. ALL PERSONAL BELONGINGS SENT WITH PT.
--- NOTE | 2021-06-08 13:00 | NUR ---
REPORT RECIEVED FROM ICU NURSE. MOVED 312 BED UP TO ICU ROOM TO TRANSFER PT DOWN TO MEDICAL AROUND 1230. TRANSFERRED PT TO ROOM. PT ALERT AND ORIENTED, THOUGH FORGETFUL. REPORTS BACK BACK. UP TO BSC TO URINATE. RETUNRED TO BED. SHIFT ASSESSMENT PERFORMED. ORIENTED PT TO ROOM AND PROVIDED NOURISHMENT. PT ON 4L NC. EXPIRATORY WHEEZING WHEN OOB TO MOVE. NOTED SCABS ON TOES AND SOME EXCORIATION ON THE GENITAL AREA. VITAL SIGNS STABLE. WILL CONTINUE TO MONITOR.
--- NOTE | 2021-06-08 14:38 | NUR ---
Clinical updates sent to Johan Shah and [facility]
--- NOTE | 2021-06-08 16:00 | NUR ---
PT MOVED INTO NEW PT ROOM 344 WITH PT BELONGINGS, EDUCATED ON BED EXERCISES TO PERFORM FOR PHYSICAL THERAPY, REPORTS PAIN TO LOW BACK, LIDOCAINE PATCH ORDERED BY SANCHEZ MARTINEZ. WILL OBTAIN KPAD WELL.
--- NOTE | 2021-06-08 16:38 | NUR ---
This RN took over the care of the patient from KRIS Manuel.
--- NOTE | 2021-06-08 19:30 | NUR ---
Report received, assumed care for spiral gear generator. Assessment complete. A&Ox3-forgetful. Denies nausea/shortness of breath. Rating pain 4/10 to back-described as constant ache-tylenol given as well as k pad. VS currently stable. TELE reports SR. Noted to have excoriation to groin area. PICC to right upper arm flushes without difficulty-good blood return. SCDs bilat. Plan of care discussed for this shift to include meds/pain control/calling for questions/concerns. Verbalizes understanding. Call light in reach. Will monitor.
[2021-06-09 00:27] VITALS: BP 103/44; PULSE 82; TEMP 97.3
[2021-06-09 04:47] VITALS: BP 121/58; PULSE 90; TEMP 97.4
[2021-06-09 05:53] LABS: BASO # 0.1 K/mm3 (0.0-0.2); BASO % 0.8 % (0.0-2.0); EOS # 0.2 K/mm3 (0.0-0.7); EOS % 2.3 % (0.0-4.0); GRAN % 60.1 % (42.2-75.2); HEMATOCRIT 39.1 % (42.0-52.0); HEMOGLOBIN 12.5 g/dl (13.5-18.0); LYMPH # 1.7 K/mm3 (1.2-3.4); LYMPH % 26.1 % (20.0-51.0); MEAN CELL VOLUME 93 fl (80.0-100.0); MEAN CORPUSCULAR HEMOGLOBIN 30 pg (27-31); MEAN CORPUSCULAR HGB CONC 32 g/dl (33.0-37.0); MEAN PLATELET VOLUME 10.7 fl (7.4-10.4); MONO # 0.7 K/mm3 (0.1-0.6); MONO % 10.1 % (1.7-9.3); PLATELET COUNT 176 K/mm3 (130-400); RED BLOOD COUNT 4.22 M/mm3 (4.20-5.60); REDCELL DISTRIBUTION WIDTH-CV 14.8 % (11.5-14.5)
[2021-06-09 06:07] LABS: CALCIUM 8.4 mg/dL (8.4-10.2); CREATININE, serum 0.81 mg/dL (0.72-1.25); POTASSIUM 3.9 mmol/L (3.5-4.5)
[2021-06-09 08:37] VITALS: BP 109/63; PULSE 100; TEMP 98.4
--- NOTE | 2021-06-09 09:00 | NUR ---
Initial assessment completed. Assisted pt up to the restroom during this time. Pt initially sternly stated that we would need to get up him. Informed him that due to his size that he would need to do what he can. Pt was no happy with this response, but then did get up to the side of the bed with little assist and did get up and walk to the bathroom with standby assist. Then informed him that we would have him sit up for a while this am. Pt did eat all of his breakfast, but did state that it was terrible food. Pt only sat up in the chair for about 5 minutes and then got back to bed. Pt television host light often. Many times he asks about changing the channel and adjusting the volume on the tv. Re-educated several times. Discussed with pt that the plan is for him to go to [facility] today. Educated him on the transfer
[2021-06-09] MEDS ORDERED: IPRATROPIUM BROM3 M1 IH (09:29)
[2021-06-09] MEDS ORDERED: CORDARONE200 MG/TAB PO (09:30)
[2021-06-09] MEDS ORDERED: TOPROL XL 25MG25 MG PO (09:31)
[2021-06-09] MEDS ORDERED: ASPIRIN E.C. 8181 MG PO (09:32)
[2021-06-09] MEDS ORDERED: TYLENOL 325MG325 MG PO (09:32)
[2021-06-09] MEDS ORDERED: MELATONIN3 M1 PO (09:33)
--- NOTE | 2021-06-09 09:33 | NUR ---
Sasha, [facility] Director, reports that they are able to accept the patient today. She states that the patient is requesting that his sister bring him his clothes, billfold, and cellphone. SW attempted to contact the patient's sister, Sasha, to update and request those items. SW left her a voicemail. The patient is to discharge today, 06/09, to [facility]. No additional needs at this time.
[2021-06-09] MEDS ORDERED: BLUE-EMU LIDOC1 EACH TP (09:34)
--- NOTE | 2021-06-09 10:18 | NUR ---
Pt resting in bed, he has been made aware that he is going to another unit on the same floor for rehab. Pt appears to have not remembered the conversation as he does not remember. Re-educated pt on the move and the reason. Pt only has complaints of his right shoulder and back bothering him, but states it is the same as it always is.
--- NOTE | 2021-06-09 10:29 | NUR ---
Pt transferring to [facility]
== END 2021-06-09 11:00 | DRG 871 ==
LOC: COL.ER 04:31 → ICU 07:27 → SURG 07:27 → MEDICAL 07:27 → ICU 06-04 15:00 → MEDICAL 06-04 15:00 → SURG 06-08 16:16
PROVIDERS: Internal Medicine; Internal Medicine Pulmonary Disease; Internal Medicine Sleep Medicine; Personal Emergency Response Attendant; Physician Assistant; Student in an Organized Health Care Education/Training Program; ADMIT Internal Medicine
PROC: 5A09357 Assistance with Respiratory Ventilation, Less than 24 Consecutive Hours, Continuous Positive Airway Pressure (ICD-10-PCS; 2021-06-04)
PROC: 02HV33Z Insertion of Infusion Device into Superior Vena Cava, Percutaneous Approach (ICD-10-PCS; principal; 2021-06-05)
DX: A41.9 Sepsis, unspecified organism (principal); J18.9 Pneumonia, unspecified organism; J96.01 Acute respiratory failure with hypoxia; G93.41 Metabolic encephalopathy; I48.92 Unspecified atrial flutter; Z68.43 Body mass index [BMI] 50.0-59.9, adult; E66.2 Morbid (severe) obesity with alveolar hypoventilation; N17.9 Acute kidney failure, unspecified; E78.00 Pure hypercholesterolemia, unspecified; Z66 Do not resuscitate; F32.A Depression, unspecified; E03.9 Hypothyroidism, unspecified; G89.29 Other chronic pain; M54.9 Dorsalgia, unspecified; M48.00 Spinal stenosis, site unspecified; K80.20 Calculus of gallbladder without cholecystitis without obstruction; I10 Essential (primary) hypertension; E11.40 Type 2 diabetes mellitus with diabetic neuropathy, unspecified; I70.90 Unspecified atherosclerosis; I44.1 Atrioventricular block, second degree; K21.9 Gastro-esophageal reflux disease without esophagitis; H70.90 Unspecified mastoiditis, unspecified ear; E87.6 Hypokalemia; E83.42 Hypomagnesemia; Z96.652 Presence of left artificial knee joint; Z20.822 Contact with and (suspected) exposure to COVID-19; Z88.0 Allergy status to penicillin; Z79.84 Long term (current) use of oral hypoglycemic drugs; Z23 Encounter for immunization
CPT/HCPCS: 99223-AI; 99231-AI; 99233-AI; 99239; A4314; A9575; C1751; J0696; J1200; J1630; J1644; J1815; J1940; J1956; J2060; J3475; J3480; J7030; Q9967